=== PATIENT | female | born 1985 | race Two or more races ===

== ENCOUNTER → 2016-11-28 | Outpatient (CLI) | payer OTHER ==
[2016-02-19 16:26] VITALS: BP 136/71
[~2016-11-28] MED LIST: CYCL10TA2 PO; HYDR-2672 PO; IBUP-1060 PO; IOHEXOL 180 MG/ML 10 ML VIAL. ONE; methylPREDNISolone ACETATE 40 MG/ML VIAL. ONE; methylPREDNISolone ACETATE 80 MG/ML VIAL. ONE
--- NOTE | 2016-11-28 10:29 | PN ---
DATE: 11/28/2016 PROGRESS NOTE FOR PAIN CLINIC DIAGNOSES: Lumbar radiculopathy with lumbar degenerative disk disease and lumbar herniated disk. HISTORY OF PRESENT ILLNESS: The patient is a 31-year-old female who returns for followup status post lumbar epidural steroid injections, last seen on 08/06/2016. The patient reports she did very well after last injection about 80% improvement, but had fallen on her tailbone about a week ago, the pain is beginning to return in her back and right leg even before she fell. The patient reports no new motor or sensory deficits, no new bowel or bladder incontinence, but the pain is 8 on a scale of 10. Describes aching and dull, throbbing in the back, radiating to the right leg, mostly in the posterior lateral anterior aspect of the right leg, anterior thigh, medial thigh and then lower leg lateral aspect below the knee. The patient reports no other changes. No bowel or bladder incontinence or other complaints. PHYSICAL EXAMINATION: GENERAL: Blood pressure 134/90, pulse 73, respirations 18, temperature is 98.5 degrees Fahrenheit, height is 5 feet 3 inches, weighs 224 pounds. GENERAL: The patient is awake, alert, oriented, appropriate, very pleasant demeanor. HEENT: Head shows normocephalic, atraumatic. Extraocular movements are intact and symmetrical. Oral cavity, mucous membranes are moist and pink. Dentition is intact. NECK: Shows anterior throat supple without palpable lymphadenopathy noted. Swallow reflex is symmetrical. CHEST: Shows normal on inspection. Breath sounds are clear to auscultation bilaterally. HEART: Shows S1 and S2 clear. ABDOMEN: Soft, nontender, nondistended. BACK: Shows spine grossly midline. Normal appearing thoracic kyphosis and some mild flattening of lumbar lordotic curvature. Lumbar paraspinous musculature shows some moderate tenderness to palpation throughout the middle and lower distributions bilaterally to fairly moderate extent, but diffusely without specific trigger points or radiation. No tenderness with rotational motion, which is performed fully greater than 10 degrees right and left as well as extension greater than 10 degrees, forward flexion 45 degrees. No tenderness over the sacrum or sacroiliac regions. EXTREMITIES: Lower extremities showed deep tendon reflexes 2+ in the patellar tendons, 1+ tendo calcaneus tendons are equal. Motor exam is strong with 5/5 dorsiflexion, extension, quadriceps and hamstring flexion and symmetrical. Options were discussed with the patient. The patient's old chart was reviewed as her current medication regimen updated, and current review of systems updated today as well and we will proceed with a second lumbar epidural steroid injection today with fluoroscopic guidance. Risks were again discussed including, but not limited to bleeding, infection, possibility of epidural hematoma and subsequent neurologic compromise, dural puncture, headaches, spinal cord and/or nerve damage, side effects of steroid medication and poor results regarding pain control. The patient understands and wishes to proceed. The patient will return to clinic in approximately 2 weeks for followup. She was counseled on return appointment, activity level and side effects to be aware of. DIAGNOSES: Lumbar radiculopathy, lumbar degenerative disk disease and lumbar herniated disk. PROCEDURES: Lumbar epidural steroid injection in translaminar approach L4-L5 level using C-arm fluoroscopic guidance and sterile prep and drape with local anesthesia. MEDICATIONS INJECTED: A 120 mg Depo-Medrol plus 10 mL of preservative-free normal saline and 2 mL of Isovue contrast. CONDITION AT DISCHARGE: Stable. The patient is tolerated the procedure well, had no complications. NEFTALI STRINGER MD DR: KIMBERLYN/nidia JOB#: [id number] / [id number]
== END | disposition home or self-care (01) ==
LOC: PNCL 09:14
PROVIDERS: ATTEND Anesthesiology
DX: M51.16 Intervertebral disc disorders with radiculopathy, lumbar region (principal)
CPT/HCPCS: 62323; J1030; J1040

== ENCOUNTER → 2017-04-23 | Outpatient (CLI) | payer OTHER ==
[2016-02-19 16:26] VITALS: BP 136/71
[~2017-04-23] MED LIST changes: -HYDR-2672 PO; +HYDR-2766 PO
--- NOTE | 2017-04-23 12:05 | PAIN ---
DATE OF SERVICE: 04/23/2017 PROGRESS NOTE FOR PAIN CLINIC DIAGNOSES: Lumbar radiculopathy with lumbar degenerative disk disease and lumbar herniated disk. HISTORY OF PRESENT ILLNESS: The patient is a 31-year-old female who returns for followup status post lumbar epidural steroid injection x 1, last seen on 11/28/2016. The patient did very well with about an 80% improvement. The pain is returning now over the past 3-4 weeks in the low back, right leg, right posterior gluteus and thigh and to the lateral anterior thigh, medial lower leg as well as the posterior lower leg and right ankle. The patient reports it is a 10 on a scale of 10 at its worst, averaging about 8, rates at 0 on a scale of 10 today. The patient reports it is worse with standing, walking, changing positions, much better with lying down or sleeping, does not disturb her sleep at night. It is much better with sitting. The patient reports some increased pain in the right low back as well with some tightness when she had a cough or sneeze the other day and this has been more sharp pain, but otherwise is dull, aching and radiating into the right leg as previously. No radiation to the left leg. No new motor or sensory deficits. No new bowel or bladder incontinence. PHYSICAL EXAMINATION: VITAL SIGNS: The patient's blood pressure 150/100, pulse 74, respirations 20, temperature is 98.1 degrees Fahrenheit. Height is 5 feet 4 inches, weighs 228 pounds. GENERAL: The patient is awake, alert, oriented, appropriate, very pleasant demeanor. HEENT: Head shows normocephalic, atraumatic. Extraocular movements are intact and symmetrical. Oral cavity shows mucous membranes moist and pink. Dentition is intact. NECK: Shows anterior throat supple without palpable lymphadenopathy noted. Swallow reflex is symmetrical. CHEST: Shows normal with inspection. Breath sounds are clear to auscultation bilaterally. HEART: Shows S1 and S2 clear. ABDOMEN: Soft, nontender, nondistended. No palpable organomegaly. No rebound or guarding demonstrated. BACK: The patient's back shows spine grossly in the midline with a normal appearing thoracic kyphosis and lumbar lordotic curvature. Lumbar paraspinous musculature shows some moderate tenderness with palpation, but only diffusely bilaterally in the lower lumbar distribution without asymmetry. There is some moderate tenderness with palpation in the right upper and lower thoracic paraspinous musculature, very firm, but without trigger points, without radiation. Lower extremities showed deep tendon reflexes 2+ in the patellar, 1+ tendo-calcaneus tendons are equal. Motor exam is 5/5 with dorsiflexion, extension, quadriceps and hamstring flexion strong and equal. Peripheral pulses are 1+ posterior tibial bilaterally. No edema is noted bilaterally. Options were discussed with the patient. The patient's old chart was reviewed as her current medication regimen updated. Current review of systems updated today as well. We will proceed with a lumbar epidural steroid injection as the second in this series with fluoroscopic guidance. Risks were again discussed including, but not limited to bleeding, infection, possibility of epidural hematoma, subsequent neurologic compromise, dural puncture, headaches, spinal cord and/or nerve damage, side effects of steroid medication and poor results regarding pain control. The patient understands and wishes to proceed. The patient will return to the clinic in approximately 2 weeks for followup, was counseled on return appointment, activity level and side effects to be aware of. DIAGNOSES: Lumbar radiculopathy with lumbar degenerative disk disease, lumbar herniated disk. PROCEDURE: Lumbar epidural steroid injection in translaminar approach L4-L5 level using C-arm fluoroscopic guidance under sterile prep and drape using local anesthetic. MEDICATION INJECTED: A total of 120 mg of Depo-Medrol plus 10 mL of preservative-free normal saline and 2 mL of Isovue for contrast. CONDITION AT DISCHARGE: Stable. The patient tolerated the procedure well, had no complications. NEFTALI STRINGER MD DR: KIMBERLYN/nidia JOB#: [id number] / [id number]
== END | disposition home or self-care (01) ==
LOC: PNCL 09:19
PROVIDERS: ATTEND Anesthesiology
DX: M51.16 Intervertebral disc disorders with radiculopathy, lumbar region (principal)
CPT/HCPCS: 62323; J1030; J1040

== ENCOUNTER → 2018-08-20 | Outpatient (CLI) | payer OTHER ==
[2016-02-19 16:26] VITALS: BP 136/71
[~2018-08-20] MED LIST changes: -HYDR-2766 PO; +HYDR-2769 PO; -IOHEXOL 180 MG/ML 10 ML VIAL. ONE; -methylPREDNISolone ACETATE 40 MG/ML VIAL. ONE; -methylPREDNISolone ACETATE 80 MG/ML VIAL. ONE
--- NOTE | 2018-08-20 09:29 | KCIC ---
EXAMINATION: Magnetic resonance imaging (MRI) of the lumbar spine without contrast 08/20/2018 8:00 AM HISTORY: Lumbar disc disease with sciatica leg pain. Chronic low back pain radiates to the right leg and foot. TECHNIQUE: Multiplanar multi-weighted MRI of the lumbar spine was performed without intravenous contrast using the standard lumbar spine protocol. Contrast information: None administered. COMPARISON: MRI lumbar spine March 03, 2016 FINDINGS: Alignment of the lumbar spine is normal. Vertebral body heights are maintained. Marrow signal intensity is normal in all sequences. Schmorl's nodes are identified involving the inferior endplate of T12, inferior endplate of L1, superior and inferior endplate of L2. There is disc desiccation at L4-L5 and L5-S1 with associated annular fissures. Findings appear similar compared to prior examination. 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 The conus medullaris terminates at T12-L1. Distal spinal cord signal intensity is normal in all sequences. Abdominal aorta is normal in caliber. No suspicious retroperitoneal abnormality is identified. Visualized portions of the sacrum appear intact. L3-L4: Disc is normal in configuration. There is no significant facet arthropathy. No neuroforaminal or spinal canal stenosis. Findings are stable from prior examination. L4-L5: There is a moderate circumferential disc bulge with right central disc extrusion extending to the superior pedicle level of L5. There is mild to moderate facet arthropathy. There is mild bilateral neuroforaminal stenosis. There is moderate spinal canal stenosis. There is right lateral recess stenosis which appears similar compared to prior examination from March 03, 2016. L5-S1: There is a mild disc bulge with superimposed right central disc extrusion extending inferiorly to the supra pedicle level of S1. There is mild to moderate facet arthropathy. There is mild bilateral neuroforaminal stenosis, right greater than left. There is right lateral recess stenosis which appears progressed since the prior examination. Mild spinal canal stenosis. IMPRESSION: Mild degenerative changes of the lumbar spine as described in detail above. Findings are most prominent at L4-L5 and L5-S1 with progression of right lateral recess stenosis at L5-S1 since March 03, 2016. Electronically signed by: Alycia Cabezas MD (08/20/2018 9:25 AM) [id number]
== END | disposition home or self-care (01) ==
LOC: KCIC MRI 07:54
PROVIDERS: ATTEND Internal Medicine
DX: M48.07 Spinal stenosis, lumbosacral region (principal); M48.061 Spinal stenosis, lumbar region without neurogenic claudication; M51.27 Other intervertebral disc displacement, lumbosacral region; M12.88 Other specific arthropathies, not elsewhere classified, other specified site
CPT/HCPCS: 72148